=== PATIENT | female | born 1955 ===

== ENCOUNTER → 2016-12-29 | Outpatient (CLI) | payer MEDICARE | END | disposition home or self-care (01) | LOC: C.PAPS 10:24 | PROVIDERS: ATTEND Physician Assistant | DX: Z01.419 Encounter for gynecological examination (general) (routine) without abnormal findings (principal) ==

== ENCOUNTER → 2017-01-23 | Outpatient (CLI) | payer BC ==
--- NOTE | 2017-01-23 15:28 | DIAGNOSTIC IMAGING REPORT ---
CHEST 2 VIEWS ROUTINE CLINICAL HISTORY: Shortness of breath. History of pulmonary embolus. COMPARISON STUDY: No previous studies for comparison. FINDINGS: Lung volumes are diminished. There is a large hiatal hernia. No pneumothorax or pleural effusion is noted. Pulmonary vascularity is normal. No consolidation is identified. Electronic device likely reflecting a stimulator overlies the right hemithorax. There is irregularity and lucency of the right humeral head with adjacent calcifications. IMPRESSION: 1. No acute cardiopulmonary findings. 2. Large hiatal hernia. 3. Mild cardiomegaly without evidence of pulmonary edema. 4. Irregularity and mild asymmetric lucency of the right humeral head with adjacent calcifications. These findings are nonspecific and could be correlated with right shoulder pain. Electronically signed by: Lucio Raymundo M.D. 01/23/2017 3:27 PM Dictated Date/Time: 01/23/2017 3:25 PM
== END | disposition home or self-care (01) ==
LOC: C.RAD1850 15:04
PROVIDERS: ATTEND Nurse Practitioner Adult Health
DX: K44.9 Diaphragmatic hernia without obstruction or gangrene (principal); I51.7 Cardiomegaly; R06.02 Shortness of breath; Z86.711 Personal history of pulmonary embolism

== ENCOUNTER → 2017-01-31 | Outpatient (CLI) | payer BC, MEDICARE ==
--- NOTE | 2017-02-01 15:59 | MAMMOGRAPHY REPORT ---
BILATERAL DIGITAL SCREENING MAMMOGRAM WITH CAD: 01/31/2017 CLINICAL HISTORY: Routine screening. Patient has no complaints. TECHNIQUE: Bilateral CC, MLO and repeat left MLO views were obtained. Current study was also evaluat ed with a Computer Aided Detection (CAD) system. COMPARISON: Comparison is made to exams dated: 09/17/2014 mammogram, 10/07/2015 mammogram, 08/25/2011 ma mmogram, 02/06/2013 mammogram, and 03/12/2009 mammogram. BREAST COMPOSITION: There are scattered areas of fibroglandular density in both breasts. FINDINGS: A metallic device is partially visualized projecting over the superior posterior right [address] on the MLO view. A 5 mm nodular asymmetry is seen in the lateral, middle one third of the right breast on the CC view. Although this could represent normal overlapping fibroglandular tissue, additional spot compression tomosynthesis views and possible ultrasound are recommended. No other suspicious mass, architectural distortion or cluster of microcalcifications is seen. IMPRESSION: ACR BI-RADS CATEGORY 0: INCOMPLETE EVALUATION: NEED ADDITIONAL IMAGING EVALUATION The 5 mm asymmetry in the lateral right breast needs additional evaluation. The patient will be called to schedule an appointment. Approximately 10% of breast cancers are not detected with mammography. A negative mammographic report should not delay biopsy if a clinically suggestive mass is present. Zaira Hess M.D. ay/:01/31/2017 15:26:08 Velvet Weaver: Michelle Correia, [facility] letter sent: Addl Imaging 0 BI-RADS Code: ACR BI-RADS Category 0: Incomplete Evaluation: Need Additional Imaging Evaluation
== END | disposition home or self-care (01) ==
LOC: C.MAMM 14:50
PROVIDERS: ATTEND Nurse Practitioner Adult Health
DX: Z12.31 Encounter for screening mammogram for malignant neoplasm of breast (principal); N64.89 Other specified disorders of breast

== ENCOUNTER → 2017-02-10 | Outpatient (CLI) | payer BC, MEDICARE ==
--- NOTE | 2017-02-10 15:33 | MAMMOGRAPHY REPORT ---
UNILATERAL RIGHT DIGITAL DIAGNOSTIC MAMMOGRAM TOMOSYNTHESIS: 02/10/2017 CLINICAL HISTORY: Callback from screening mammogram for right breast asymmetry. TECHNIQUE: Breast tomosynthesis in addition to standard 2D mammography was performed. Spot compress ion right CC and MLO 2-D and tomosynthesis images were obtained. COMPARISON: Comparison is made to exams dated: 01/31/2017 mammogram - [facility], 10/07/2015 mammogram, 09/17/2014 mammogram, 02/06/2013 mammogram, 08/25/2011 mammogram, and 03/12/2009 tony mogram. BREAST COMPOSITION: There are scattered areas of fibroglandular density in the right breast. FINDINGS: The previously described nodular asymmetry seen within the right lateral breast on the cc v iew effaces on the additional spot compression views. Normal fibroglandular tissue is seen within th is region on the additional tomosynthesis images, without evidence of a mass, architectural distortio n, or other suspicious finding noted. Given that the asymmetry effaced, it is benign and compatible w ith normal fibroglandular tissue. IMPRESSION: ACR BI-RADS CATEGORY 2: BENIGN The right breast asymmetry effaces on the additional views, and is benign and compatible with normal fibroglandular tissue. There is no mammographic evidence of malignancy. A 1 year screening mammogram is recommended. The patient has been verbally notified of the results. Approximately 10% of breast cancers are not detected with mammography. A negative mammographic report should not delay biopsy if a clinically suggestive mass is present. Cat Peraza M.D. ah/:02/10/2017 14:31:22 Aircraft [employer]: Beverly HODGE(Sona)(M), [facility] letter sent: Normal 1/2 BI-RADS Code: ACR BI-RADS Category 2: Benign
== END | disposition home or self-care (01) ==
LOC: C.MAMM 14:01
PROVIDERS: ATTEND Nurse Practitioner Adult Health
DX: N64.9 Disorder of breast, unspecified (principal)

== ENCOUNTER → 2017-02-18 | Outpatient (CLI) | payer BC, MEDICARE ==
[2017-02-18 12:54] LABS: BASO % 0.5 %; BASO ABS # 0.03 K/uL (0-0.2); EOS % 0.7 %; EOS ABS # 0.04 K/uL (0-0.5); HEMATOCRIT 32.8 % (37-47); HEMOGLOBIN 10.2 g/dL (12.0-16.0); IG# 0.02 K/uL (0.00-0.02); LYMPH % 25.2 %; LYMPH ABS # 1.53 K/uL (1.2-3.4); MEAN CELL VOLUME 89.4 fL (80-100); MEAN CORPUSCULAR HEMOGLOBIN 27.8 pg (25-34); MEAN CORPUSCULAR HGB CONC 31.1 g/dl (32-36); MONO % 4.6 %; MONO ABS # 0.28 K/uL (0.11-0.59); NEUT % 68.7 %; NEUT ABS # 4.17 K/uL (1.4-6.5); PLATELET COUNT 284 K/uL (130-400); WHITE BLOOD COUNT 6.07 K/uL (4.8-10.8)
[2017-02-18 13:00] LABS: ALBUMIN 3.4 gm/dl (3.4-5.0); ALT/SGPT 15 U/L (12-78); AST/SGOT 23 U/L (15-37); BLOOD UREA NITROGEN 15 mg/dl (7-18); CALCIUM 8.6 mg/dl (8.5-10.1); CARBON DIOXIDE 29 mmol/L (21-32); CREATININE 0.77 mg/dl (0.60-1.20); GLUCOSE 91 mg/dl (70-99); SODIUM 136 mmol/L (136-145)
[2017-02-18 13:11] LABS: ALKALINE PHOSPHATASE 98 U/L (45-117); CHOLESTEROL 216 mg/dl (0-200); LDL CHOLESTEROL CALCULATED 127 mg/dl
== END | disposition home or self-care (01) ==
LOC: C.LABPVFM 11:00
PROVIDERS: ATTEND Nurse Practitioner Adult Health
DX: F41.9 Anxiety disorder, unspecified (principal); R26.89 Other abnormalities of gait and mobility; R06.02 Shortness of breath; G47.9 Sleep disorder, unspecified; W19.XXXA Unspecified fall, initial encounter; R25.1 Tremor, unspecified; G20 Parkinson's disease; Z79.899 Other long term (current) drug therapy; Z13.220 Encounter for screening for lipoid disorders

== ENCOUNTER → 2017-03-13 | Outpatient (CLI) | payer OTHER ==
[2017-03-13 17:24] LABS: BASO % 0.3 %; BASO ABS # 0.02 K/uL (0-0.2); EOS % 0.7 %; EOS ABS # 0.05 K/uL (0-0.5); HEMATOCRIT 35.4 % (37-47); HEMOGLOBIN 10.9 g/dL (12.0-16.0); IG# 0.01 K/uL (0.00-0.02); LYMPH % 20.1 %; LYMPH ABS # 1.37 K/uL (1.2-3.4); MEAN CELL VOLUME 87.8 fL (80-100); MEAN CORPUSCULAR HGB CONC 30.8 g/dl (32-36); MEAN PLATELET VOLUME 10.3 fL (7.4-10.4); MONO % 2.9 %; NEUT % 75.9 %; NEUT ABS # 5.16 K/uL (1.4-6.5); PLATELET COUNT 281 K/uL (130-400); RED CELL DISTRIBUTION WIDTH CV 14.4 % (11.5-14.5); RED CELL DISTRIBUTION WIDTH SD 46.2 fL (36.4-46.3); WHITE BLOOD COUNT 6.81 K/uL (4.8-10.8)
== END | disposition home or self-care (01) ==
LOC: C.LAB1850 16:08
PROVIDERS: ATTEND Nurse Practitioner Adult Health
DX: D64.9 Anemia, unspecified (principal)